=== PATIENT | female | born 1985 | race Caucasian/White ===

== ENCOUNTER 2022-11-01 01:53 | Emergency (ER) | payer BC ==
[2022-11-01] MEDS ORDERED: Ondansetron 4 MG Tab.DIS ONE (02:30)
[2022-11-01] MEDS ORDERED: Ondansetron 4 MG Tab.DIS PO ONE (02:53)
[2022-11-01 03:30] VITALS: BP 116/73; PULSE 99
== END 2022-11-01 02:40 | disposition home or self-care (01) ==
LOC: LB.ED 01:53
DX: H81.10 Benign paroxysmal vertigo, unspecified ear (principal); F17.210 Nicotine dependence, cigarettes, uncomplicated; E66.9 Obesity, unspecified; Z68.30 Body mass index [BMI] 30.0-30.9, adult; Z79.899 Other long term (current) drug therapy
CPT/HCPCS: 99283; A9270-GY; Q0162